=== PATIENT | female | born 1970 | race Caucasian/White ===

== ENCOUNTER → 2017-04-15 | Outpatient (CLI) | payer BC ==
[~2017-04-15] MED LIST: FOLIC ACID1 MG PO; LEVOTHYROXINE50 MCG PO; OXYCODONE/ACETA1 TA1 PO; PROZAC20 MG PO; TOVIAZ8 MG PO; VITAMIN D33000 UNIT PO
--- NOTE | 2017-04-15 14:41 | DIAGNOSTIC IMAGING REPORT ---
PROCEDURE: MG BILATERAL SCREENING W/CAD INDICATION: SCREENING TECHNIQUE: Standard CC and MLO views bilaterally. Computer aided detection was used. COMPARISON: 07/16/2014, 03/29/2012, 05/12/2011 FINDINGS: Dense patchy glandular tissue is present bilaterally. Stable scattered benign calcifications. No developing densities, areas of architectural distortion, or suspicious microcalcifications. IMPRESSION: 1. Stable mammograms without radiographic evidence of malignancy. RESULT CODE: 2- Benign findings. A. A negative report should not delay biopsy if a dominant or clinically suspicious mass is present. 10-15% of cancers are not identified by x-ray. B. A negative report may reinforce clinical impression. C. Adenosis and dense breasts may obscure an underlying neoplasm. D. False positive reports average 6-10%. E.. A yearly screening mammogram is recommended. A reminder letter will be scheduled.
== END ==
LOC: MAM SRH 13:56
DX: Z12.31 Encounter for screening mammogram for malignant neoplasm of breast (principal)